=== PATIENT | female | born 1980 | race Caucasian/White ===

== ENCOUNTER 2018-04-13 07:24 | Emergency (ER) | payer SELFPAY, OTHER ==
[2018-04-13 07:51] LABS: BEDSIDE GLUCOSE 113 MG/DL (70-105)
[2018-04-13] MEDS: NS 1,000 ML IV (08:00)
[2018-04-13 08:03] LABS: BASO # 0.1 10^3/uL (0.0-0.2); BASO % 0.8 % (0.0-1.0); EOS # 0.3 10^3/uL (0.0-0.50); EOS % 3.5 % (0.0-3.0); HEMATOCRIT 39.7 % (36.0-47.0); HEMOGLOBIN 13.2 g/dl (12.0-15.5); IMMATURE GRANULOCYTE % 0.3 % (0-3.0); LYMPH # 2.7 10^3/uL (1.5-4.5); LYMPH % 36.4 % (24.0-44.0); MEAN CORPUSCULAR HEMOGLOBIN 28.4 pg (27.0-33.0); MEAN CORPUSCULAR HGB CONC 33.2 g/dl (32.0-36.5); MEAN CORPUSCULAR VOLUME 85.6 fl (80.0-96.0); MONO # 0.4 10^3/uL (0.0-0.8); PLATELET COUNT, AUTOMATED 226 10^3/uL (150-450); RED BLOOD COUNT 4.64 10^6/uL (4.00-5.40); WHITE BLOOD COUNT 7.4 10^3/uL (4.0-10.0)
[2018-04-13 08:17] LABS: INR 1.12; PROTHROMBIN TIME 14.6 SECONDS (12.1-14.4)
[2018-04-13 08:18] LABS: PARTIAL THROMBOPLASTIN TIME 24.2 SECONDS (25.4-37.6)
[2018-04-13 08:20] LABS: CONTROL LINE HCG INT CTR LINE PRESENT; HCG, SERUM QUALITATIVE NEGATIVE (NEGATIVE)
[2018-04-13 08:27] LABS: ANION GAP 8 MEQ/L (8-16); BLOOD UREA NITROGEN 17 MG/DL (7-18); CALCIUM LEVEL 8.8 MG/DL (8.5-10.1); CARBON DIOXIDE LEVEL 25 MEQ/L (21-32); CHLORIDE LEVEL 110 MEQ/L (98-107); CPK CREATINE PHOSPHOKINASE 386 U/L (26-192); CREATININE FOR GFR 0.86 MG/DL (0.55-1.30); FREE T4 1.04 NG/DL (0.76-1.46); GLOMERULAR FILTRATION RATE > 60.0 (>60); GLUCOSE, FASTING 97 MG/DL (70-100); MAGNESIUM LEVEL 2.2 MG/DL (1.8-2.4); POTASSIUM SERUM 3.6 MEQ/L (3.5-5.1); SODIUM LEVEL 143 MEQ/L (136-145); TROPONIN I < 0.02 NG/ML (< 0.10)
[2018-04-13 08:33] LABS: CK-MB VALUE MASS 2.2 NG/ML (<3.6); MB/CK RELATIVE INDEX 0.56 (< OR =4); THYROID STIMULATING HORMONE 0.606 uIU/ML (0.358-3.740)
== END 2018-04-13 11:00 | disposition home or self-care (01) ==
LOC: M ED 07:24
DX: R55 Syncope and collapse (principal); E86.0 Dehydration; F17.210 Nicotine dependence, cigarettes, uncomplicated
CPT/HCPCS: 71046

== ENCOUNTER → 2018-07-09 | Outpatient (CLI) | payer OTHER | LOC: M RAD 13:45 | DX: Z34.82 Encounter for supervision of other normal pregnancy, second trimester (principal) | CPT/HCPCS: 76801 ==

== ENCOUNTER → 2019-06-22 | Outpatient (REF) | payer OTHER | LOC: M SFHCLERA 14:41 | PROVIDERS: ATTEND Physician Assistant | DX: R35.0 Frequency of micturition (principal) ==

== ENCOUNTER → 2020-01-20 | Outpatient (CLI) | payer OTHER ==
[2020-01-20 11:37] LABS: HEMATOCRIT 41.3 % (36.0-47.0); HEMOGLOBIN 13.8 g/dl (12.0-15.5); MEAN CORPUSCULAR HEMOGLOBIN 29.2 pg (27.0-33.0); MEAN CORPUSCULAR HGB CONC 33.4 g/dl (32.0-36.5); MEAN CORPUSCULAR VOLUME 87.5 fl (80.0-96.0); PLATELET COUNT, AUTOMATED 264 10^3/uL (150-450); RED BLOOD COUNT 4.72 10^6/uL (4.00-5.40); WHITE BLOOD COUNT 7.3 10^3/uL (4.0-10.0)
[2020-01-20 12:15] LABS: ALBUMIN 4.1 GM/DL (3.2-5.2); ALT/SGPT 18 U/L (12-78); BLOOD UREA NITROGEN 12 MG/DL (7-18); CALCIUM LEVEL 9.1 MG/DL (8.5-10.1); CARBON DIOXIDE LEVEL 29 MEQ/L (21-32); CHLORIDE LEVEL 107 MEQ/L (98-107); CREATININE FOR GFR 0.72 MG/DL (0.55-1.30); FOLLICLE STIMULATING HORMONE 11.7 mIU/mL; GLOMERULAR FILTRATION RATE > 60.0 (>58); GLUCOSE, FASTING 85 MG/DL (70-100); LUTEINIZING HORMONE 7.6 mIU/mL; POTASSIUM SERUM 3.8 MEQ/L (3.5-5.1); SODIUM LEVEL 142 MEQ/L (136-145); TESTOSTERONE 33 NG/DL (14-76); THYROID STIMULATING HORMONE 0.643 uIU/ML (0.358-3.740); TOTAL 25(OH) VITAMIN D 19.4 NG/ML (30.0-100.0); TOTAL PROTEIN 6.8 GM/DL (6.4-8.2)
== END ==
LOC: M LAB 11:00
PROVIDERS: ATTEND Family Medicine
DX: N91.1 Secondary amenorrhea (principal); N93.9 Abnormal uterine and vaginal bleeding, unspecified; E55.9 Vitamin D deficiency, unspecified

== ENCOUNTER → 2020-05-08 | Outpatient (CLI) | payer OTHER | LOC: M LAB 10:21 | PROVIDERS: ATTEND Family Medicine | DX: Z30.40 Encounter for surveillance of contraceptives, unspecified (principal) ==

== ENCOUNTER → 2021-08-07 | Outpatient (CLI) | payer BC | LOC: M PLALAB 11:01 | PROVIDERS: ATTEND Advanced Practice Midwife | DX: O09.511 Supervision of elderly primigravida, first trimester (principal); Z3A.00 Weeks of gestation of pregnancy not specified ==

== ENCOUNTER → 2021-09-04 | Outpatient (CLI) | payer BC ==
[2021-09-04 13:48] LABS: HEMATOCRIT 37.4 % (36.0-47.0); HEMOGLOBIN 12.1 g/dl (12.0-15.5); MEAN CORPUSCULAR HEMOGLOBIN 27.3 pg (27.0-33.0); MEAN CORPUSCULAR HGB CONC 32.4 g/dl (32.0-36.5); MEAN CORPUSCULAR VOLUME 84.2 fl (80.0-96.0); PLATELET COUNT, AUTOMATED 231 10^3/uL (150-450); RED BLOOD COUNT 4.44 10^6/uL (4.00-5.40)
[2021-09-04 15:26] LABS: GC DNA AMPLIFICATION NEGATIVE (NEGATIVE)
[2021-09-04 15:27] LABS: HIV 1&2 SCREEN CENTAUR NEGATIVE (NEGATIVE)
== END ==
LOC: M PLALAB 09:25
PROVIDERS: ATTEND Advanced Practice Midwife
DX: O09.529 Supervision of elderly multigravida, unspecified trimester (principal); Z3A.00 Weeks of gestation of pregnancy not specified

== ENCOUNTER → 2021-10-02 | Outpatient (CLI) | payer BC ==
--- NOTE | 2021-10-02 10:15 | REP ---
INDICATION: ANATOMY COMPARISON: None. TECHNIQUE: Transabdominal obstetrical ultrasound with color Doppler evaluation. FINDINGS: Examination demonstrates a single live intrauterine in cephalic presentation. motion is identified by technologist. Placenta is noted anterior and grade 0 without evidence for placenta previa or abruption. Amniotic fluid volume is normal. Cervix measures 4.6 cm in length and appears closed.. Selected gestational age: 18 weeks 0 days with MARIAELENA 03/05/2022. Gestational age by current measurements 18 weeks 3 days with MARIAELENA 03/02/2022. FHR equals 146 beats per minute. Estimated weight 237 grams (69thpercentile). Anatomical assessment demonstrates normal structures including cranium, choroid plexus, cavum, cerebellum/posterior fossa, facial features, lungs, four-chamber heart/ventricular outflow tracts, diaphragm, stomach, cord insertion/three-vessel cord, kidneys/bladder, spine, and extremities. IMPRESSION: Single live intrauterine in cephalic presentation demonstrating appropriate estimated weight. Anatomical assessment is complete and normal. <Electronically signed by Mark Hargrove > 10/02/21 1011
== END ==
LOC: M WHC 08:34
PROVIDERS: ATTEND Advanced Practice Midwife
DX: O09.529 Supervision of elderly multigravida, unspecified trimester (principal); Z3A.18 18 weeks gestation of pregnancy

== ENCOUNTER → 2021-11-27 | Outpatient (CLI) | payer BC ==
[2021-11-27 13:26] LABS: HEMATOCRIT 35.7 % (36.0-47.0); HEMOGLOBIN 11.2 g/dl (12.0-15.5); MEAN CORPUSCULAR HEMOGLOBIN 27.7 pg (27.0-33.0); MEAN CORPUSCULAR HGB CONC 31.4 g/dl (32.0-36.5); MEAN CORPUSCULAR VOLUME 88.1 fl (80.0-96.0); PLATELET COUNT, AUTOMATED 241 10^3/uL (150-450); RED BLOOD COUNT 4.05 10^6/uL (4.00-5.40); WHITE BLOOD COUNT 9.9 10^3/uL (4.0-10.0)
== END ==
LOC: M PLALAB 10:45
PROVIDERS: ATTEND Advanced Practice Midwife
DX: O09.529 Supervision of elderly multigravida, unspecified trimester (principal); Z3A.00 Weeks of gestation of pregnancy not specified
CPT/HCPCS: 36415; 82950; 85027; 86850; 86900; 86901; J2790

== ENCOUNTER → 2022-01-08 | Outpatient (CLI) | payer BC | LOC: M WHC 14:29 | PROVIDERS: ATTEND Advanced Practice Midwife | DX: O09.529 Supervision of elderly multigravida, unspecified trimester (principal); Z3A.32 32 weeks gestation of pregnancy ==

== ENCOUNTER → 2022-02-04 | Outpatient (REF) | payer BC | LOC: M SFHCWAGY 12:39 | PROVIDERS: ATTEND Advanced Practice Midwife | DX: Z36.89 Encounter for other specified antenatal screening (principal) ==

== ENCOUNTER → 2022-02-04 | Outpatient (CLI) | payer BC | LOC: M WHC 08:40 | PROVIDERS: ATTEND Obstetrics & Gynecology | DX: O09.523 Supervision of elderly multigravida, third trimester (principal); Z3A.36 36 weeks gestation of pregnancy ==

== ENCOUNTER → 2022-09-25 | Outpatient (REF) ==
[~2022-09-25] MED LIST: PRENTAB9 PO
[2022-09-25 14:05] LABS: RSV AMPLIFICATION NEGATIVE (NEGATIVE)
== END ==
LOC: M LABSMTC 09:36
PROVIDERS: ATTEND Family Medicine
DX: Z20.818 Contact with and (suspected) exposure to other bacterial communicable diseases (principal)

== ENCOUNTER → 2023-12-26 | Outpatient (REF) | payer BC | LOC: M SFHCWAGY 13:13 | PROVIDERS: ATTEND Advanced Practice Midwife | DX: Z12.4 Encounter for screening for malignant neoplasm of cervix (principal) | CPT/HCPCS: 87624; G0123 ==

== ENCOUNTER → 2024-01-16 | Outpatient (CLI) | payer BC | LOC: M WHC 09:32 | PROVIDERS: ATTEND Advanced Practice Midwife | DX: Z12.31 Encounter for screening mammogram for malignant neoplasm of breast (principal) ==

== ENCOUNTER → 2024-12-28 | Outpatient (REF) | payer BC ==
[2024-12-30 14:52] LABS: HPV APTIMA Not Detected (Not Detected)
== END ==
LOC: M SFHCWAGY 13:52
PROVIDERS: ATTEND Advanced Practice Midwife
DX: Z12.4 Encounter for screening for malignant neoplasm of cervix (principal)
CPT/HCPCS: 87624; G0123

== ENCOUNTER → 2025-01-31 | Outpatient (CLI) | payer BC | LOC: M WHC 01-21 10:26 | PROVIDERS: ATTEND Advanced Practice Midwife | DX: Z12.31 Encounter for screening mammogram for malignant neoplasm of breast (principal); R92.323 Mammographic fibroglandular density, bilateral breasts ==

== ENCOUNTER 2025-06-26 00:49 | Emergency (ER) | payer BC ==
[~2025-06-26] VITALS: Ht 167.6 cm; Wt 77.3 kg
[2025-06-26 03:28] LABS: BASO # 0.1 10^3/uL (0.0-0.2); BASO % 0.3 % (0.0-1.0); EOS # 0.1 10^3/uL (0.0-0.5); EOS % 0.5 % (0.0-3.0); LYMPH # 1.8 10^3/uL (1.5-5.0); LYMPH % 12.4 % (24.0-44.0); MONO # 0.7 10^3/uL (0.0-0.8); MONO % 4.7 % (2.0-8.0); NEUTROPHILS # 12.0 10^3/uL (1.5-8.5); NEUTROPHILS % 81.6 % (36.0-66.0); PLATELET COUNT, AUTOMATED 252 10^3/uL (150-450)
[2025-06-26 03:51] LABS: ALT/SGPT 49 U/L (7.0-40); AST/SGOT 78 U/L (<34); CALCIUM LEVEL 9.3 MG/DL (8.5-10.1); CARBON DIOXIDE LEVEL 21 MMOL/L (20-31); CHLORIDE LEVEL 107 MMOL/L (98-107); CREATININE FOR GFR 0.67 MG/DL (0.55-1.30); GLOMERULAR FILTRATION RATE > 90.0 (>58); POTASSIUM SERUM 3.6 MMOL/L (3.5-5.1); SODIUM LEVEL 141 MMOL/L (136-145)
[2025-06-26] MEDS: KETOROLAC 30 MG/ML 1 ML VIAL IV ONE (04:09)
[2025-06-26] MEDS: MORPHINE 4 MG/ML 1 ML VIAL IV ONE (04:23)
[2025-06-26 07:45] LABS: ALT/SGPT 203.0 U/L (7.0-40); AST/SGOT 301.0 U/L (<34)
[2025-06-26] MEDS ORDERED: OMEP-611 PO (11:14)
[2025-06-26] MEDS ORDERED: HOME MED LIST COMPLETE! XX SCH (11:15)
[2025-06-26 12:12] LABS: BASO # 0.0 10^3/uL (0.0-0.2); BASO % 0.5 % (0.0-1.0); EOS # 0.1 10^3/uL (0.0-0.5); EOS % 1.1 % (0.0-3.0); LYMPH # 1.7 10^3/uL (1.5-5.0); LYMPH % 27.3 % (24.0-44.0); MONO # 0.5 10^3/uL (0.0-0.8); MONO % 7.5 % (2.0-8.0); NEUTROPHILS # 3.9 10^3/uL (1.5-8.5); NEUTROPHILS % 63.1 % (36.0-66.0)
[2025-06-26 12:42] LABS: ALT/SGPT 404.0 U/L (7.0-40); AST/SGOT 482.0 U/L (<34)
[2025-06-26 13:30] VITALS: BP 117/77; TEMP 97.9; O2SAT 98
[2025-06-26] MEDS ORDERED: ONDA-282 PO (13:35)
[2025-06-26] MEDS ORDERED: HYDR-3713 PO (13:35)
[2025-06-26] MEDS ORDERED: AMOX500T2 PO (13:35)
== END 2025-06-26 13:49 | disposition home or self-care (01) ==
LOC: M ED 00:49
DX: K80.20 Calculus of gallbladder without cholecystitis without obstruction (principal); N28.1 Cyst of kidney, acquired; Z79.1 Long term (current) use of non-steroidal anti-inflammatories (NSAID); Z79.2 Long term (current) use of antibiotics; Z79.83 Long term (current) use of bisphosphonates
CPT/HCPCS: 74181; 76705; 80048; 80076; 83690; 85025; 96374; 99285; J1885

== ENCOUNTER 2025-08-10 09:01 | Day surgery (SDC) | payer BC ==
[~2025-08-10] VITALS: Ht 167.6 cm; Wt 76.3 kg
[~2025-08-10 09:01] MED LIST changes: +AMOX500T2 PO; +BUPR150T12 PO; +HYDR-3713 PO; +METF-838 PO; +NALT50TA4 PO; +OMEP-611 PO; +ONDA-282 PO
[2025-08-10] MEDS: LR 1,000 ML IV SCH (09:32)
[2025-08-10] MEDS ORDERED: LIDOCAINE 2% 100 MG/5 ML SDV (FOR ANES.) As Ordered ONE (10:01)
[2025-08-10] MEDS ORDERED: ROCURONIUM BROMIDE 50MG/5ML VIAL As Ordered ONE (10:01)
[2025-08-10] MEDS ORDERED: MIDAZOLAM INJ 2 MG/2 ML VIAL As Ordered ONE (10:02)
[2025-08-10] MEDS ORDERED: dexAMETHasone 4 MG/ML 1 ML VIAL As Ordered ONE (10:28)
[2025-08-10] MEDS: ceFAZolin SOD 2 GM IV ONCE IV ONE (10:40)
[2025-08-10] MEDS ORDERED: KETOROLAC 30 MG/ML 1 ML VIAL As Ordered ONE (11:15)
[2025-08-10] MEDS ORDERED: SUGAMMADEX SODIUM 200 MG/2 ML VIAL As Ordered ONE (11:15)
[2025-08-10] MEDS ORDERED: ONDANSETRON 4MG/2ML VIAL As Ordered ONE (11:15)
[2025-08-10] MEDS ORDERED: LABETALOL 100 MG/20 ML VIAL As Ordered ONE (11:17)
[2025-08-10] MEDS ORDERED: ONDANSETRON 4MG/2ML VIAL IV PRN (11:55)
[2025-08-10] MEDS ORDERED: LR 1,000 ML IV SCH (11:55)
[2025-08-10] MEDS: HYDROMORPHONE HCL 0.5 MG/0.5 ML SYRINGE IV PRN (12:04)
[2025-08-10 12:31] VITALS: BP 132/72; TEMP 97.1; O2SAT 100
== END 2025-08-10 12:55 | disposition home or self-care (01) ==
LOC: M SDC 09:01
PROVIDERS: ATTEND Surgery
DX: K80.10 Calculus of gallbladder with chronic cholecystitis without obstruction (principal); F17.290 Nicotine dependence, other tobacco product, uncomplicated; Z79.899 Other long term (current) drug therapy
CPT/HCPCS: 47562; 81025; 88304; J0665; J0688; J1100; J1171; J1885; J1920; J2250; J2405; J3010